=== PATIENT | female | born 1970 | race Caucasian/White ===

== ENCOUNTER 2018-10-07 13:12 | Emergency (ER) | payer OTHER ==
[~2018-10-07] VITALS: Wt 71.0 kg
[2018-10-07] MEDS ORDERED: SOD CHLORIDE 0.9% 1,000 ML IV STA (16:45)
[2018-10-07] MEDS ORDERED: KETOROLAC 15 MG INJ IV STA (16:45)
--- NOTE | 2018-10-07 16:48 | ERD ---
ER Documentation Chief Complaint Chief Complaint CHEST PAIN SINCE THIS MORNING HPI Patient complains of substernal chest pain, discomfort x 1 day she was referred here for further evaluation. Patient states the pain is nonexertional nonradiating but worse with deep inspiration. She denies shortness of breath, no cough, no fevers or chills, no vomiting or diarrhea. Patient denies calf or leg swelling, no history of thromboembolism, no exposure to tobacco smoke, and patient is and does not use oral contraceptives. She did have tendon release surgery to the right thumb 2 days ago but she did not undergo general anesthesia, she was not intubated, and surgery lasted less than 40 minutes. ROS All systems reviewed and are negative except as per history of present illness. Medications Home Meds Active Scripts Ibuprofen* (Motrin*) 600 Mg Tab, 600 MG PO Q8 PRN for PAIN AND/OR INFLAMMATION, #30 TAB Prov:MARK OCAMPO MD 10/07/18 Reported Medications Hydrocodone/Acetaminophen ([place] 5-325 Tablet) 1 Each Tablet, 1 EACH PO NEEDED, TAB 10/07/18 Allergies Allergies: Coded Allergies: Sulfa (Sulfonamide Antibiotics) (Verified Allergy, Mild, 10/07/18) PMhx/Soc None FmHx Family History: No diabetes Physical Exam Vitals Vital Signs Date Temp Pulse Resp B/P (MAP) Pulse Ox O2 O2 Flow FiO2 Time Delivery Rate 10/07/18 78 16 123/78 98 Room Air 18:57 (93) 10/07/18 75 18 151/75 99 Room Air 17:56 (100) 10/07/18 57 13 140/92 100 Room Air 17:20 (108) 10/07/18 75 20 159/100 100 Room Air 17:00 (119) 10/07/18 98.1 78 18 162/81 99 13:14 (108) Physical Exam Const: Anxious appearing, afebrile Head: Atraumatic Eyes: Normal Conjunctiva ENT: Normal External Ears, Nose and Mouth. Neck: Full range of motion. No meningismus. Resp: Clear to auscultation bilaterally Cardio: Regular rate and rhythm, no murmurs Abd: Soft, non tender, non distended. Normal bowel sounds Skin: No petechiae or rashes Back: No midline or flank tenderness Ext: No cyanosis, or edema Neur: Awake and alert Psych: Anxious appearing Result Diagram: 10/07/18 1706 10/07/18 1708 Results 24 hrs Laboratory Tests Test 10/07/18 17:06 10/07/18 17:07 10/07/18 17:08 White Blood Count 7.5 10^3/ul Red Blood Count 4.76 10^6/ul Hemoglobin 13.1 g/dl Hematocrit 41.9 % Mean Corpuscular Volume 88.0 fl Mean Corpuscular Hemoglobin 27.5 pg Mean Corpuscular 31.3 g/dl Hemoglobin Concent Red Cell Distribution Width 12.9 % Platelet Count 347 10^3/UL Mean Platelet Volume 9.3 fl Immature Granulocytes % 0.300 % Neutrophils % 48.5 % Lymphocytes % 40.0 % Monocytes % 8.4 % Eosinophils % 2.3 % Basophils % 0.5 % Nucleated Red Blood Cells % 0.0 /100WBC Immature Granulocytes # 0.020 10^3/ul Neutrophils # 3.6 10^3/ul Lymphocytes # 3.0 10^3/ul Monocytes # 0.6 10^3/ul Eosinophils # 0.2 10^3/ul Basophils # 0.0 10^3/ul Nucleated Red Blood Cells # 0.0 10^3/ul D-Dimer 375.47 ng/ml D-Dimer Comment Urine Color STRAW Urine Clarity CLEAR Urine pH 6 Urine Specific [place] 1.025 Urine Ketones NEGATIVE mg/dL Urine Nitrite NEGATIVE mg/dL Urine Bilirubin NEGATIVE mg/dL Urine Urobilinogen 0.2 E.U./dL mg/dL Urine Leukocyte Esterase NEGATIVE Katie/ul Urine Microscopic RBC 2 /HPF Urine Microscopic WBC 2 /HPF Urine Mucus FEW /HPF Urine Hemoglobin NEGATIVE mg/dL Urine Glucose NEGATIVE mg/dL Urine Total Protein 1+ mg/dl Sodium Level 143 mmol/L Potassium Level 4.1 mmol/L Chloride Level 104 mmol/L Carbon Dioxide Level 27 mmol/L Anion Gap 12 Blood Urea Nitrogen 11 mg/dl Creatinine 0.81 mg/dl Est Glomerular Filtrat > 60 mL/min Rate mL/min Glucose Level 97 mg/dl Calcium Level 10.0 mg/dl Total Bilirubin 0.2 mg/dl Direct Bilirubin 0.00 mg/dl Indirect Bilirubin 0.2 mg/dl Aspartate Amino 20 IU/L Transf (AST/SGOT) Alanine 10 IU/L Aminotransferase (ALT/SGPT) Alkaline Phosphatase 97 IU/L Troponin I 0.017 ng/ml Total Protein 8.4 g/dl Albumin 4.5 g/dl Globulin 3.90 g/dl Albumin/Globulin Ratio 1.15 Lipase 85 U/L Current Medications Medications Dose Sig/Laura Start Time Status Last (Trade) Ordered Route PRN Stop Time Admin Dose Reason Admin Sodium 1,000 ml @ Q1H STAT 10/07/18 DC 10/07/18 Chloride 1,000 mls/hr IV 16:45 10/07/18 17:17 17:44 Ketorolac 15 mg ONCE STAT 10/07/18 DC 10/07/18 Tromethamine IV 16:45 10/07/18 17:17 (Toradol) 16:47 Procedures/MDM IV line was established patient was placed on quality assurance monitor final rhythm strip revealed a sinus rhythm at about 60 bpm with upright P and T waves. Patient was afebrile EKG performed, read by me: 62 bpm, normal sinus rhythm, normal axis, no acute ST segment changes, narrow QRS complex, with good R-wave progression in precordial leads. One AP view of the chest performed, read by me reveals no acute infiltrates, normal mediastinum, sharp costophrenic and cardiac borders, no air under the diaphragm. Otherwise unremarkable chest x-ray. I administered 1 L normal saline IV and Toradol 15 mg IV x1. CBC and electrolytes were normal, liver function tests were normal, troponin was negative, d-dimer was less than 500. Patient's well's criteria score was 4.5 given other equally likely diagnoses and recent surgery (although I do not feel the surgery she had 2 days ago to the right thumb represents an increased risk factor for thromboembolism making her score more likely 1.5). We discussed her Wells criteria score and the risks and benefits associated with CTA of the chest to rule out pulmonary embolism although the patient felt so much better and had no complaints of chest pain or shortness of breath she deferred further imaging. Throughout her stay in our ER her pulse remained normal and her oxygen saturation on room air was 100%. Differential diagnoses considered, included but not limited to acute coronary syndrome, pulmonary embolism, aortic dissection, abdominal aortic aneurysm, sepsis, stroke, meningitis, encephalitis, pneumonia, appendicitis, cholecystitis, bowel obstruction, pyelonephritis, nephrolithiasis, cystitis, as well as metabolic, hematologic, and electrolyte abnormalities. As well as abscess, cellulitis, fractures, and dislocations. Patient feels much better at this time, and vital signs are normal, symptoms have improved. I did give strict instructions to return to the ED if symptoms co ntinue or worsen, patient will otherwise follow-up with primary care physician. Patient understood instructions and agreed to plan. Disclaimer: Inadvertent spelling and grammatical errors are likely due to EHR/dictation software use and do not reflect on the overall quality of patient care. Also, please note that the electronic time recorded on this note does not necessarily reflect the actual time of the patient encounter. Departure Diagnosis: Primary Impression: Chest pain Chest pain type: unspecified Qualified Codes: R07.9 - Chest pain, unspecified Additional Impression: Hypertension Hypertension type: essential hypertension Qualified Codes: I10 - Essential (primary) hypertension Condition: Good MARK OCAMPO MD Oct 07, 2018 16:48
[2018-10-07] MEDS ORDERED: HYDR-4011 PO (18:02)
[2018-10-07] MEDS ORDERED: IBUP-1542 PO (18:26)
[2018-10-07 18:57] VITALS: BP 123/78; PULSE 78; RESP 16
== END 2018-10-07 19:23 | disposition home or self-care (01) ==
LOC: E/R 13:12
DX: I10 Essential (primary) hypertension (principal)
CPT/HCPCS: 71045; 80053; 81001; 83690; 84484; 85025; 85378; J1885; J7030; 93005; 96374